=== PATIENT | male | born 1960 | race Caucasian/White ===

== ENCOUNTER → 2021-10-29 | Outpatient (CLI) | payer BC | END | disposition home or self-care (01) | LOC: PLD 12:15 → LAB SHORT 12:15 | DX: D23.61 Other benign neoplasm of skin of right upper limb, including shoulder (principal) | CPT/HCPCS: 88305 ==

== ENCOUNTER 2024-06-25 12:07 | Emergency (ER) | payer BC ==
[~2024-06-25] VITALS: Ht 193 cm; Wt 104.3 kg
[2024-06-25 12:41] VITALS: BP 143/88
[2024-06-25] MEDS ORDERED: CEPH500 PO (14:44)
== END 2024-06-25 15:00 | disposition home or self-care (01) ==
LOC: ER 12:07
DX: N49.2 Inflammatory disorders of scrotum (principal); L73.9 Follicular disorder, unspecified; Z88.5 Allergy status to narcotic agent
CPT/HCPCS: 76870; 99283-25

== ENCOUNTER 2025-02-11 11:38 | Emergency (ER) | payer MEDICARE ==
[~2025-02-11] VITALS: Ht 193 cm; Wt 113.4 kg
[~2025-02-11 11:38] MED LIST: CEPH500 PO
[2025-02-11 12:05] LABS: BASOPHILS ABSOLUTE AUTO 0.03 K/mm3 (0.00-0.23); BASOPHILS PERCENT AUTO 0 % (0-2); EOSINOPHILS ABSOLUTE AUTO 0.13 K/mm3 (0.00-0.68); EOSINOPHILS PERCENT AUTO 2 % (0-6); Hematocrit 42.9 % (37.0-53.0); Hemoglobin 14.9 g/dL (13.5-17.5); IMMATURE GRAN ABSOLUTE AUTO 0.02 K/mm3 (0.00-0.10); IMMATURE GRAN PERCENT AUTO 0 % (0-1); LYMPHOCYTES ABSOLUTE AUTO 1.54 K/mm3 (0.84-5.20); LYMPHOCYTES PERCENT AUTO 18 % (21-46); MONOCYTES ABSOLUTE AUTO 0.50 K/mm3 (0.16-1.47); MONOCYTES PERCENT AUTO 6 % (4-13); Mean Corpuscular HGB Conc 34.7 g/dL (31.5-36.5); Mean Corpuscular Volume 94 fL (80-100); NEUTROPHILS ABSOLUTE AUTO 6.38 K/mm3 (1.96-9.15); NEUTROPHILS PERCENT AUTO 74 % (41-73); NRBC ABSOLUTE 0.00 K/mm3 (0.00-0.02); NRBC Auto 0.0 /100 WBC (0.0-0.2); Platelet Count 198 K/mm3 (150-400); RDW Coefficient Variation 13.0 % (11.7-14.2); RDW Standard Deviation 44.6 fL (35.1-46.3)
[2025-02-11 12:26] LABS: Alanine Aminotransfer (ALT/SGP 32.0 U/L (12-78); Albumin, Blood 3.9 g/dL (3.4-5.0); Albumin/Globulin Ratio 1.3 (0.8-1.8); Anion Gap 9.0 mmol/L (3-11); Aspartate Aminotrans (AST/SGOT 21.0 U/L (12-37); Bilirubin, Total 1.1 mg/dL (0.1-1.0); Blood Urea Nitrogen 12.0 mg/dL (8-24); CO2, Blood 23.0 mmol/L (21-32); Calcium, Blood 9.3 mg/dL (8.5-10.1); Chloride, Blood 108.0 mmol/L (98-108); Creatinine, Blood 0.99 mg/dL (0.60-1.20); Globulin, Blood 2.9 g/dL (2.2-4.0); Glucose, Blood 132.0 mg/dL (70-99); Potassium, Blood 3.8 mmol/L (3.5-5.5); Sodium, Blood 136.0 mmol/L (136-145); Total Protein, Blood 6.8 g/dL (6.4-8.2)
[2025-02-11] MEDS ORDERED: Albuterol 2.5 MG/3 ML VIAL INH ONE (17:15)
[2025-02-11] MEDS ORDERED: HYDROmorphone HCl/Pf 1MG SYR IM ONE (17:15)
[2025-02-11] MEDS ORDERED: HYDROmorphone HCl/Pf 1MG SYR IV ONE ×2 (17:25→19:05)
[2025-02-11 19:25] VITALS: BP 137/85
[2025-02-11] MEDS ORDERED: ALBU90OI INH (19:54)
== END 2025-02-11 19:35 | disposition home or self-care (01) ==
LOC: ER 11:38
PROVIDERS: Student in an Organized Health Care Education/Training Program
DX: R07.89 Other chest pain (principal); Z86.711 Personal history of pulmonary embolism; Z79.2 Long term (current) use of antibiotics
CPT/HCPCS: 71045; 71260; 80053; 84484; 85025; 85379; 93005; 93010; 96374-59; 96376-59; 99284-25; J1171; Q9967

== ENCOUNTER 2025-03-25 08:25 | Emergency (ER) | payer MEDICARE ==
[~2025-03-25] VITALS: Ht 193 cm; Wt 115.7 kg
[~2025-03-25 08:25] MED LIST changes: +ALBU90OI INH
[2025-03-25] MEDS ORDERED: ELIQUIS5 M4 PO (10:07)
[2025-03-25 10:15] VITALS: BP 131/71
== END 2025-03-25 10:37 | disposition home or self-care (01) ==
LOC: ER 08:25
DX: I82.812 Embolism and thrombosis of superficial veins of left lower extremity (principal); I47.10 Supraventricular tachycardia, unspecified; J44.9 Chronic obstructive pulmonary disease, unspecified; Z79.2 Long term (current) use of antibiotics
CPT/HCPCS: 93971; 99283-25